=== PATIENT | female | born 1995 | race Caucasian/White ===

== ENCOUNTER 2023-11-22 14:05 | Emergency (ER) | payer OTHER ==
[~2023-11-22] VITALS: Ht 162.6 cm; Wt 124.6 kg
[2023-11-22] MEDS ORDERED: PRED10PA PO (16:22)
[2023-11-22] MEDS ORDERED: CEPH500C PO (16:22)
[2023-11-22] MEDS ORDERED: LIDO15SO8 PO (17:39)
[2023-11-22 17:49] VITALS: BP 146/96; TEMP 98.1; O2SAT 96
== END 2023-11-22 17:52 | disposition home or self-care (01) ==
LOC: M ED 14:05
DX: J02.9 Acute pharyngitis, unspecified (principal); Z79.52 Long term (current) use of systemic steroids; Z79.2 Long term (current) use of antibiotics; Z79.899 Other long term (current) drug therapy